=== PATIENT | female | born 1985 | race African-American/Black ===

== ENCOUNTER 2017-04-16 00:39 | Emergency (ER) | payer SELFPAY ==
[2017-04-16] MEDS ORDERED: Lidocaine Viscous Sol 2% 15 ml UD Cup ONE (01:14)
[2017-04-16] MEDS ORDERED: Ketorolac Tromethamine 30 MG/ML VIAL ONE (01:14)
[2017-04-16] MEDS ORDERED: Mag-Al 1200 mg/1200 mg/30 ML UDCUP ONE (01:14)
[2017-04-16 01:37] LABS: #Basophils 0.1 thou/uL (0.0-0.2); #Eosinphils 0.3 thou/uL (0.0-0.7); #Lymphocytes 2.2 thou/uL (1.20-3.40); #Monocytes 0.4 thou/uL (0.11-0.59); #Neutrophils 4.4 thou/uL (1.40-6.50); %Basophils 1.2 % (0.0-1.0); %Eosinophils 3.9 % (0.0-10.0); %Lymphocytes 29.9 % (21.0-51.0); %Monocytes 5.9 % (0.0-10.0); Hematocrit 34.3 % (36.0-47.0); Mean Platelet Volume 10.1 fL (7.4-10.4); Red Blood Cell (RBC) Count 4.46 mill/uL (4.20-5.40); White Blood Cell (WBC) Count 7.4 thou/uL (4.8-10.8)
[2017-04-16 01:59] LABS: ALT (SGPT) 7 U/L (8-55); AST (SGOT) 11 U/L (5-34); Alkaline Phosphatase 77 U/L (40-150); Anion Gap 12 mmol/L (10-20); BUN (Urea Nitrogen) 13 mg/dL (7.0-18.7); Bilirubin, Total 0.2 mg/dL (0.2-1.2); CK (CPK) 92 U/L (29-168); Calc. Creatinine Clearance 0 mL/min (70-130); Calcium 9.6 mg/dL (7.8-10.44); Carbon Dioxide 22 mmol/L (22-29); Chloride 106 mmol/L (98-107); Estimated GFR-MDRD 73; Globulin 3.5 g/dL (2.4-3.5); Lipase 27 U/L (8-78); Protein, Total 7.4 g/dL (6.0-8.3)
[2017-04-16 02:09] LABS: Troponin I Less than 0.010 ng/mL (< 0.028)
--- NOTE | 2017-04-16 07:46 | RAD ---
PA AND LATERAL VIEWS CHEST: HISTORY: Chest pain. FINDINGS: The cardiomediastinum is normal. The lungs are expanded. The bony thorax is normal. IMPRESSION: Normal exam. POS: [facility]
== END 2017-04-16 02:34 | disposition home or self-care (01) ==
LOC: ERS 00:39
DX: R07.89 Other chest pain (principal); F41.9 Anxiety disorder, unspecified
CPT/HCPCS: 36415; 71020; 80053; 82553; 83690; 84484; 85025; 93005; 96372; J1885

== ENCOUNTER 2018-01-05 23:42 | Emergency (ER) | payer SELFPAY ==
[2018-01-06 00:23] LABS: #Eosinphils 0.2 thou/uL (0.0-0.7); #Lymphocytes 2.4 thou/uL (1.20-3.40); #Monocytes 0.5 thou/uL (0.11-0.59); #Neutrophils 2.9 thou/uL (1.40-6.50); %Basophils 0.4 % (0.0-1.0); %Eosinophils 2.7 % (0.0-10.0); %Lymphocytes 39.9 % (21.0-51.0); %Monocytes 8.2 % (0.0-10.0); %Neutrophils 48.8 % (42.0-75.0); Hemoglobin 10.7 g/dL (12.0-16.0); Mean Corpuscular HGB CONC 33.1 g/dL (32.0-36.0); Mean Corpuscular Hemoglobin 25.7 pg (27.0-31.0); Mean Corpuscular Volume 77.5 fL (78.0-98.0); Mean Platelet Volume 9.1 fL (7.4-10.4); Platelet Count 195 thou/uL (130-400); RBC Distribution Width 12.7 % (11.5-14.5); Red Blood Cell (RBC) Count 4.18 mill/uL (4.20-5.40)
[2018-01-06 00:28] LABS: BHCG - Serum Negative (NEGATIVE); Pregs Control Background? CLEAR/WHITE (CLR/WHITE); Pregs Control Bar Appear? YES (CONTROL BAR)
[2018-01-06 00:38] LABS: ALT (SGPT) 10 U/L (8-55); AST (SGOT) 14 U/L (5-34); Albumin 3.9 g/dL (3.5-5.0); Alkaline Phosphatase 65 U/L (40-150); Anion Gap 11 mmol/L (10-20); BUN (Urea Nitrogen) 12 mg/dL (7.0-18.7); Bilirubin, Total 0.2 mg/dL (0.2-1.2); CK (CPK) 126 U/L (29-168); Calc. Creatinine Clearance 0 mL/min (70-130); Calcium 9.1 mg/dL (7.8-10.44); Carbon Dioxide 25 mmol/L (22-29); Chloride 106 mmol/L (98-107); Estimated GFR-MDRD Greater than 90; Globulin 3.3 g/dL (2.4-3.5); Glucose 105 mg/dL (70-105); Lipase 25 U/L (8-78); Potassium 3.9 mmol/L (3.5-5.1); Protein, Total 7.2 g/dL (6.0-8.3); Sodium 138 mmol/L (136-145)
[2018-01-06 00:42] LABS: CKMB 0.3 ng/mL (0-6.6); Troponin I Less than 0.010 ng/mL (< 0.028)
--- NOTE | 2018-01-06 07:39 | RAD ---
RADIOGRAPH CHEST 1 VIEW: HISTORY: 32-year-old female with acute chest pain and cough. FINDINGS: There are no air space densities, pulmonary edema, pneumothorax, or cardiomegaly. The lateral costop hrenic angles are sharp. IMPRESSION: No acute cardiopulmonary findings. breana [] POS: [facility]
--- NOTE | 2018-01-06 08:42 | CT ---
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 Pt rep orts pain started yesterday. Pt reports nonproductive cough. Pt reports the cough comes from the onse t of pain in the chest. Pt reports the cp is intermittent. Pt denies n/v/f, SOB. TECHNIQUE: Axial computed tomographic angiography images of the chest with intravenous contrast using pulmonary embolism protocol. MIP reconstructed images were created and reviewed. COMPARISON: No relevant prior studies available. FINDINGS: Pulmonary arteries: There is no evidence of peripheral filling defects within the pulmonary arterial circulation to suggest pulmonary embolism. Aorta: The aorta is normal. There is no evidence of aortic dissection, leak, rupture, or other compli cations. Lungs: There is subpleural atelectasis of the dependent portions of the lungs. No mass. No consolidat ion. Pleural space: Normal. No significant effusion. No pneumothorax. Heart: Normal. No cardiomegaly. No significant pericardial effusion. No evidence of RV dysfunction. Mediastinum: The trachea is normal. Thyroid: The visualized thyroid gland is unremarkable. Bones/joints: No acute fracture. No dislocation. Soft tissues: Normal. Lymph nodes: Normal. No enlarged lymph nodes. Gallbladder and bile ducts: There has been a cholecystectomy. IMPRESSION: There is no CT evidence of acute pulmonary embolism. Thank you for allowing us to participate in the care of your patient. Dictated and Authenticated by: Miguel Miranda MD 01/06/2018 1:55 AM Central Time ([place] & [place]) FINAL REPORT CT PULMONARY ANGIOGRAM WITH IV CONTRAST AND 3D POST PROCESSING: FINDINGS/IMPRESSION: I agree with the preliminary report given by Dr. Miranda of [facility]. POS: [facility]
== END 2018-01-06 02:46 | disposition home or self-care (01) ==
LOC: ERS 23:42
DX: R07.9 Chest pain, unspecified (principal); K21.9 Gastro-esophageal reflux disease without esophagitis; E78.5 Hyperlipidemia, unspecified; F41.9 Anxiety disorder, unspecified; Z79.899 Other long term (current) drug therapy
CPT/HCPCS: 36415; 71045; 71275; 80053; 82550; 82553; 83690; 84484; 84703; 85025; 85379; 93005; 94760